=== PATIENT | male | born 1995 | race American Indian/Alaskan Native ===

== ENCOUNTER 2017-09-24 12:31 | Emergency (ER) | payer BC ==
[2017-09-24 13:02] VITALS: BMI 24.2
[2017-09-24 13:04] VITALS: BP 126/80; PULSE 72; RESP 16; TEMP 98.6; O2SAT 99
[2017-09-24] MEDS ORDERED: TDAP Vaccine 0.5 mL Syr IM ONE (14:00)
--- NOTE | 2017-09-24 14:24 | ED PDOC ---
Arrival/HPI - General Chief Complaint: Abnormal Skin Integrity Time Seen by Provider: 09/24/17 14:00 Historian: Patient - History of Present Illness Narrative History of Present Illness (Text): 09/24/17 14:37 22-year-old male presents today with the left foot requesting tetanus shot. Patient states he stepped on a nail that went through his sneaker into his foot. He denies pain. Denies fevers or chills. Patient states he cleaned the wound at home. Patient states he needs a tetanus shot he is unsure of his last tetanus shot. Denies numbness weakness or tingling in the extremity. Denies history of diabetes. No other complaints Time/Duration: Other (yesterday) Past Medical History - Provider Review Nursing Documentation Reviewed: Yes - Travel History Have you recently traveled outside [place] w/in the past 3 mons?: No - Infectious Disease Hx of Infectious Diseases: None - Tetanus Immunization Tetanus Immunization: Unknown - Cardiac Hx Cardiac Disorders: No Hx Hypertension: No - Pulmonary Hx Tuberculosis: No - Neurological HX Cerebrovascular Accident: No Hx Seizures: No - Hematological/Oncological Hx Cancer: No - Genitourinary/Gynecological Hx Sexually Transmitted Diseases: No - Psychiatric Hx Depression: No Hx Emotional Abuse: No Hx Physical Abuse: No Hx Substance Use: (occassionally) - Anesthesia Hx Anesthesia: No Hx Anesthesia Reactions: No Hx Malignant Hyperthermia: No - Suicidal Assessment Feels Threatened In Home Enviroment: No Family/Social History - Physician Review Nursing Documentation Reviewed: Yes Family/Social History: Unknown Family HX Smoking Status: Current Some Days Smoker Hx Alcohol Use: Yes Hx Substance Use: (occassionally) Substance used: weed Allergies/Home Meds Allergies/Adverse Reactions: Allergies No Known Allergies Allergy (Verified 09/30/12 12:45) Review of Systems - Review of Systems Constitutional: absent: Fatigue, Fevers Respiratory: absent: SOB, Cough Cardiovascular: absent: Chest Pain, Palpitations Gastrointestinal: absent: Abdominal Pain, Nausea, Vomiting Musculoskeletal: Arthralgias Skin: Other (puncture wound foot) Neurological: absent: Headache, Dizziness Psychiatric: absent: Anxiety, Depression Physical Exam Vital Signs Reviewed: Yes Vital Signs Temp Pulse Resp BP Pulse Ox 09/24/17 13:02 98.6 F 72 16 126/80 99 Temperature: Afebrile Blood Pressure: Normal Pulse: Regular Respiratory Rate: Normal Appearance: Positive for: Well-Appearing, Non-Toxic, Comfortable Pain Distress: None Mental Status: Positive for: Alert and Oriented X 3 - Systems Exam Head: Present: Atraumatic Mouth: Present: Moist Mucous Membranes Respiratory/Chest: Present: Clear to Auscultation Cardiovascular: Present: Regular Rate and Rhythm Lower Extremity: Present: NORMAL PULSES, Normal ROM, Neurovascularly Intact, Capillary Refill < 2 s. No: Tenderness, Swelling, Erythema, Temperature Abnormalties Neurological: Present: GCS=15, Speech Normal Skin: Present: Warm, Dry, Normal Color. No: Rashes Psychiatric: Present: Alert, Oriented x 3 Medical Decision Making ED Course and Treatment: 09/24/17 14:44 Patient nontoxic well-appearing in no distress with stable vital signs. Patient with puncture wound to the left foot yesterday. X-rays ordered. tetanus updated cipro PO Patient refusing to have the left foot puncture wound irrigated. He is refusing x-rays of the foot. Advised patient of risk of infection, loss of limb, , disability or worsening of symptoms Patient has been advised to not leave the emergency room but has decided to go AGAINST MEDICAL ADVICE. The patient possesses capacity to make decisions and has voiced understanding to all my warnings of potential worsening of the condition for which medical care was sought. I have discussed all known and potential risks and consequences to the patient leaving AGAINST MEDICAL ADVICE. Patient is leaving against medical advise. AMA form signed. witness by REYNALDO singh. Patient was advised to return if he wishes to continue his care. Impression: puncture wound, foot return if you wish to continue your care keep wound clean and dry; apply bacitracin twice daily take cipro twice daily x 7 days. return immediately if signs of infection develop; high fevers, increasing pain, redness, swelling or purulent discharge develop. follow up with the primary care physician within the next 2 days. - RAD Interpretation Radiology Orders: 09/24/17 14:01 FOOT LEFT 3 VIEWS ROUTINE [RAD] Stat - Medication Orders Current Medication Orders: Discontinued Medications Ciprofloxacin (Cipro) 500 mg PO ONCE STA PRN Reason: Protocol Stop: 09/24/17 14:03 Last Admin: 09/24/17 14:21 Dose: 500 mg Tetanus/Reduced Diphtheria/Acell Pertussis (Boostrix Vaccine Inj) 0.5 ml IM .ONCE ONE Stop: 09/24/17 14:01 Last Admin: 09/24/17 14:19 Dose: 0.5 ml MAR Immunization Data Document 09/24/17 14:19 TA (Rec: 09/24/17 14:19 TA [email or web address]) Immunization Data Vaccine Information Sheet Given Yes Vaccine Information Sheet Given Date 09/24/17 Immunization Registry Document 09/24/17 14:19 TA (Rec: 09/24/17 14:19 TA [email or web address]) Immunization Registry Consent Date 09/24/17 Disposition/Present on Arrival - Present on Arrival Any Indicators Present on Arrival: No History of DVT/PE: No History of Uncontrolled Diabetes: No Urinary Catheter: No History of Decub. Ulcer: No History Surgical Site Infection Following: None - Disposition Have Diagnosis and Disposition been Completed?: Yes Diagnosis: Puncture wound of foot Disposition: AGAINST MEDICAL ADVICE Disposition Time: 14:21 Patient Plan: Other (AMA) Patient Problems: Current Active Problems Problem Status Onset Puncture wound of foot Acute Condition: FAIR Discharge Instructions (ExitCare): Puncture Wound (ED) Additional Instructions: return if you wish to continue your care keep wound clean and dry; apply bacitracin twice daily take cipro twice daily x 7 days. return immediately if signs of infection develop; high fevers, increasing pain, redness, swelling or purulent discharge develop. follow up with the primary care physician within the next 2 days. Prescriptions: Bacitracin OINT 1 applic TP BID #1 tube Ciprofloxacin [Cipro] 500 mg PO BID #14 tab Referrals: Darwin Oneal DPM [Staff Provider] - Follow up with primary Lazarus Santos MD [Staff Provider] - Follow up with primary Forms: [employer] ([place]), WORK NOTE
== END 2017-09-24 15:20 | disposition left against medical advice (07) ==
LOC: ED 12:31
DX: S91.332A Puncture wound without foreign body, left foot, initial encounter (principal); W45.0XXA Nail entering through skin, initial encounter; Z23 Encounter for immunization